=== PATIENT | female | born 1995 ===

== ENCOUNTER 2017-08-01 08:02 | Emergency (ER) | payer MEDICAID ==
[2015-05-02 11:51] VITALS: BMI 29.7
--- NOTE | 2017-08-01 10:22 | OBHP ---
Datetime: 08/01/2017 08:45 IP Adm Impression: , intrauterine ; No Active Labor IP Admit Plan: Observation/Evaluation; Discharge home Admit Comment, IP Provider: 22yo with IUP at 36+wks reports to the [facility] today c/o intermittent pelvic cramps and vaginal spotting this morning. She reports good movements but denies LOF. Den ies sexual intercourse for the past 3 months. care with [facility] and has been uncomplicated . Delivery of previous baby at 37wks Uncomplicated. [place]: Irregular contractions with frequency ranging 5-8 mins FHR - Category 1 Cx: FT-/40/-2, [facility] presentation Assessment: IUP at 36.6wks NST Reactive. Pelvic Pressure. Plan: Re evaluate in 1 hour. Patient Reevaluated in 1 hour Cx: 1-40/-2 Pt reports pain scale 3-4. Labor instructions given Plan: D/C Home. Return with strong contractions Q 5mins F/U with OB clinic if no progression to labor within 1 week. Re evaluate Pelvic Type - PN: Adequate Extremities - PN: Normal Abdomen - PN: Normal Back - PN: Normal Breast - PN: Normal Lungs - PN: Normal Heart - PN: Normal Thyroid - PN: Normal Neurologic - PN: Normal HEENT - PN: Normal General - PN: Normal Presentation-Admit: Vertex FHR - Baseline A Provider: 130s Membranes, Provider: Intact Gestation - Est Wks by US: 36.6 EGA AdmitDate IP: 36.6 Vital Signs Provider: Reviewed IP Chief Complaint: Vaginal bleeding; Maternal discomfort NICHD Variability Prov Fetus A: Moderate 6-25bpm NICHD Accel Fetus A IP Provider: 15X15 FHR Category Provider Fetus A: Category I NICHD Decel Fetus A IP Provider: None Dilatation, Provider: FT Effacement, Provider: 40 Station, Provider: -2 Genitourinary Exam: Normal DTRs - PN: Normal
[2017-08-01 14:45] VITALS: O2SAT 99
[2017-08-06 17:20] VITALS: BP 126/53; PULSE 66; RESP 20; TEMP 98.7
== END 2017-08-01 10:15 | disposition home or self-care (01) ==
LOC: H.EROB2 08:02
DX: O26.93 Pregnancy related conditions, unspecified, third trimester (principal); R10.2 Pelvic and perineal pain; O26.853 Spotting complicating pregnancy, third trimester; O47.03 False labor before 37 completed weeks of gestation, third trimester; Z3A.36 36 weeks gestation of pregnancy

== ENCOUNTER 2017-08-03 06:58 | Inpatient (IN) | payer MEDICAID ==
[2017-08-03 07:43] VITALS: BMI 28.5
[2017-08-03] MEDS ORDERED: Lactated Ringer's 1,000 ML IV SCH (07:45)
[2017-08-03] MEDS ORDERED: Penicillin G Potassium 5 MU in Sodium Chloride 0.9% 50 ML IV ONE (07:51)
[2017-08-03 08:18] LABS: BASO % 0.2 % (0.0-2.0); EOS % 0.2 % (0.0-4.0); HEMOGLOBIN 12.6 g/dL (12.0-16.0); LYMPH # 2.6 K/uL (1.0-4.3); LYMPH % 19.2 % (20.0-40.0); MEAN CORPUSCULAR HEMOGLOBIN 28.1 pg (27.0-31.0); MEAN CORPUSCULAR HGB CONC 32.7 g/dL (33.0-37.0); MEAN PLATELET VOLUME 9.3 fl (7.2-11.7); MONO # 0.9 K/uL (0.0-0.8); MONO % 6.9 % (0.0-10.0); NEUT # 10.1 K/uL (1.8-7.0); NEUT % 73.5 % (50.0-75.0); RBC 4.48 Mil/uL (3.80-5.20); RED CELL DISTRIBUTION WIDTH 14.3 % (11.5-14.5); WHITE BLOOD COUNT 13.8 K/uL (4.8-10.8)
[2017-08-03] MEDS ORDERED: Benzocaine/Menthol SPRAY TOP PRN ×2 (08:22→09:55)
--- NOTE | 2017-08-03 08:33 | OBDS ---
DELIVERY PERSONNEL Delivery Doctor: DR. Hartley Cloth Winder Machine Operator: Karissa James RN Resident: Dr. Seay MATERNAL INFORMATION Delivery Anesthesia: None Medications in Delivery: Pitocin 30units in LR 500 ml Estimated Blood Loss (ml): 150 Placenta Cultured: No Maternal Complications: None Provider Comments: Pt was fully dilated and was pushing. A viable female infant with BW of 2995gm wa s delivered in the BLAINE position with an scores of 9 and 9 over an intact perineum. EBL- 150mls Pt tolerated the procedure well. LABOR SUMMARY EDC: 08/26/2017 00:00 No. Babies in Womb: 1 Attempted: No Labor Anesthesia: None LABOR INFORMATION Reason for Induction: Not Applicable Onset of Labor: 08/03/2017 03:00 Complete Dilatation: 08/03/2017 08:09 Oxytocin: N/A Group B Beta Strep: Done, Result Unknown Antibiotics # of Doses: none Antibiotics Time of Last Dose: none Steroids Given: None Reason Steroids Not Administered: Not Applicable MEMBRANES Membranes Rupture Method: Spontaneous Rupture of Membranes: 08/03/2017 08:09 Length of Rupture (hrs): 0.05 Amniotic Fluid Color: Clear Amniotic Fluid Amount: Moderate Amniotic Fluid Odor: Normal STAGES OF LABOR Stage 1 hrs: 5 Stage 1 min: 9 Stage 2 hrs: 0 Stage 2 min: 3 Stage 3 hrs: 0 Stage 3 min: 2 Total Time in Labor hrs: 5 Total Time in Labor min: 14 VAGINAL DELIVERY Episiotomy: None Laceration Extension: N/A Laceration Type: None Initial Vag Sponge Count: 0 Final Vag Sponge Count: 0 Initial Vag Sharps Count: 0 Final Vag Sharps Count: 0 Sponge Count Correct: Yes Sharps Count Correct: N/A Count Comment: 5 laps with rings. count correct and acknowledged BABY A INFORMATION Infant Delivery Date/Time: 08/03/2017 08:12 Method of Delivery: Vaginal Born in Route : No : N/A Forceps: N/A Vacuum Extraction: N/A Shoulder Dystocia : No SHOULDER DYSTOCIA BABY A Infant Delivery Date/Time: 08/03/2017 08:12 PRESENTATION/POSITION BABY A Presentation: Cephalic Cephalic Presentation: Vertex Breech Presentation: N/A PLACENTA INFORMATION BABY A Placenta Delivery Time : 08/03/2017 08:14 Placenta Method of Delivery: Spontaneous Placenta Status: Delivered SCORES BABY A Heart Rate 1 min: >100 bpm Resp Effort 1 min: Good Cry Reflex Irritability 1 min: Cough or Sneeze or Pulls Away Muscle Tone 1 min: Active Motion Color 1 min: Body [place], Extremities Blue Resuscitation Effort 1 min: Tactile Stimulation SCORE 1 MIN: 9 Heart Rate 5 min: >100 bpm Resp Effort 5 min: Good Cry Reflex Irritability 5 min: Cough or Sneeze or Pulls Away Muscle Tone 5 min: Active Motion Color 5 min: Body [place], Extremities Blue Resuscitation Effort 5 min: Tactile Stimulation SCORE 5 MIN: 9 INFORMATION BABY A Gestational Age at Delivery: 37.5 Gestational Status: Term Infant Outcome : Liveborn Infant Condition : Stable Sex: Female IDENTIFICATION/MEDS BABY A ID Band Number: [id number] ID Band Location: Left Leg; Left Arm Vitamin K Given : Not Given Erythromycin Given: Not Given WEIGHT/LENGTH BABY A Birthweight (gms): 2995 Infant Weight (lb): 6 Weight (oz): 10 CORD INFORMATION BABY A No. Cord Vessels: 3 Nuchal Cord : 3 Cord Blood Taken: Yes Infant Suction: None ASSESSMENT BABY A Infant Complications: None Physical Findings at Delivery: Within Normal Limits Respirations: Appears Normal Extracting Machine Operator/ALS Called : No Infant Care By: marcela Freitas Transferred To: Remains with Mother
--- NOTE | 2017-08-03 08:35 | OBADHP ---
Datetime: 08/03/2017 07:30 Admit Comment, IP Provider: 22 y/o at 36.5 weeks GA, CARLOS 08/26/17 by LMP 11/19/16, presented to [facility] c/o painful uterine contractions. Pt reports CTX began 2 days ago but aggravated in intensity t is morning at 3 am, 9/10 intensity and every 5 mins. Mucous plug expulsion yesterday at 11am. No LOF or vaginal bleeding. FM present. All systems reviewed and negative except as above. -NKDA -Medications: PNV -PN Care: Dr Gardner at [facility] -PN Labs: RPR neg, HIV neg, GBS unknown. -OBHx: , 1x at 37 weeks GA, 1x IAb. -PMHx: denied -PSHx: denied -FHx: NC SHx: No tobacco, no alcohol and no rec drugs. A/P: 22 y/o with IUP at 36.5 weeks GA, in active labor, GBS unknown. -Admit to L and D -Initiate labor protocol. -Penicillin prophylaxis. Case discussed with Dr [place], OB hospitalist commissioned [employer] officer. GTolentino PGY-1 Attending Note: Pt was seen with the resident and agrees with the above. Breast - PN: Normal Heart - PN: Normal Thyroid - PN: Normal HEENT - PN: Normal General - PN: Normal FHR - Baseline A Provider: 140 Comments, ACOG Physical Exam: Pelvis: cephalic presentation Pool Provider: Negative IP Hx Assessment: The History has been Reviewed and is Current Vital Signs Provider: Reviewed IP Chief Complaint: Uterine contractions NICHD Variability Prov Fetus A: Moderate 6-25bpm NICHD Accel Fetus A IP Provider: 15X15 FHR Category Provider Fetus A: Category I Dilatation, Provider: 5-6 Effacement, Provider: 70 Station, Provider: -1 EGA AdmitDate IP: 36.5 IP Adm Impression: , intrauterine IP Admit Plan: Admit to unit; Initiate labor protocol Datetime: 08/01/2017 08:45 Pelvic Type - PN: Adequate Extremities - PN: Normal Abdomen - PN: Normal Back - PN: Normal Lungs - PN: Normal Neurologic - PN: Normal Presentation-Admit: Vertex Membranes, Provider: Intact Gestation - Est Wks by US: 36.6 NICHD Decel Fetus A IP Provider: None Genitourinary Exam: Normal DTRs - PN: Normal
[2017-08-04 07:33] LABS: HEMOGLOBIN 11.3 g/dL (12.0-16.0); MEAN CELL VOLUME 87.1 fl (81.0-99.0); MEAN CORPUSCULAR HEMOGLOBIN 28.3 pg (27.0-31.0); MEAN CORPUSCULAR HGB CONC 32.5 g/dL (33.0-37.0); RBC 3.99 Mil/uL (3.80-5.20); RED CELL DISTRIBUTION WIDTH 14.1 % (11.5-14.5); WHITE BLOOD COUNT 13.4 K/uL (4.8-10.8)
--- NOTE | 2017-08-04 07:47 | OBPPN ---
Datetime: 08/04/2017 06:14 PP Pain Prov: Within normal limits PP Nausea Prov: Denies PP Flatus Prov: Yes PP BM Prov: No PP Impression Prov: Normal progression PP Plan Prov: Continue present management PP Progress Note Prov: PPD 1 S: 22 y/o female s/p on 08/03/17 evaluated on PPD1. Pt was seen and examined at beds endy this AM. No overnight events. Pt reports mild abdominal pain, but well controlled with pain meds. Ambulating. Breast feeding (with formula supplementation) without difficulty. Lochia is similar to m enses volume. +Flatus/-BM. Denies fever/chills, diarrhea, nausea/vomiting, chest pain, dyspnea, and d izziness. O: VS: stable GEN: NAD Cardio: S1S2, no murmurs Lungs: clear breath sounds b/l, no wheezing Abdomen: BS+, appropriate tenderness to palpation. Uterus is firm and at the level of the umbilic us. EXT: No edema, calves nontender NEURO/PSYCH: AAOx3, no grossly focal deficits, preserved affect and mood. H/H (post ): pending Assessment/Plan: 22 y/o female s/p on 08/03/17, doing well on PPD1. Pt remains afebr ile, tolerating pain with medication. Tolerating diet. Anticipating d/c on 08/05. Continue with curre nt management. F/U post cbc. Encourage and ambulating Ibuprofen 600mg po q6 for pain. Colace 100 mg PO BID Carito Augustine, PGY1 OB Hospitalist Addendum: Pt seen and examined by me. Agree w/ above. PPD 1 s/p , doing well, breast and bottle feeding Continue current management. (ES) Vital Signs Provider PP: Reviewed; Within Normal Limits
--- NOTE | 2017-08-05 12:15 | OBDCSUM ---
Datetime: 08/05/2017 08:12 Discharged to, Provider: Home Follow up at, Provider: [facility] Disch Instr Activity: Normal activity; May be up to bathroom; May be up for meals; May Shower Disch Instr Diet: Regular Discharge Instructions, Provider: Routine instructions given Discharge Diagnosis, Provider: Delivery Discharge Time: 08/05/2017 12:00 Follow up in weeks, Provider: 4-6 weeks Disch Referrals: None Contraception discussed, Prov: Yes Disch Activity Restrictions: No lifting; No sexual activity; Nothing in vagina - [place], tampon s, douche Discharge Comment, Provider: 22 yo , s/p NVD of viable female infant on 08/03/17 at 0812, jem h weight 2995g, APGARS: 9/9. Post H/H: 11.3/34.7. Doing well on PPD 2. Discharge instructions: --Encourage . --Continue PNV 1 tab PO daily. --Ibuprofen 600 mg 1 tab Q6h PRN if moderate pain. Take ibuprofen with food and glass of water. --Ambulate with caution, nothing per vagina for 6 weeks, no heavy lifting. If excessive bleeding, or fever without relief from tylenol, go to ED. --Follow up with provider at [facility] in 4-6 weeks; you will receive a ph one call about your appointment this week. If you are not notified of an appointment, please call for a appointment. --Follow up at storage and backup administrator or family medicine provider of choice within 1 week to establish care for infant. -[email or web address] Discharge Diagnosis Prov Other: delivery at 36 weeks and 5 days Contraception after Delivery: Undecided
--- NOTE | 2017-08-05 12:15 | OBPPN ---
Datetime: 08/05/2017 07:53 PP Pain Prov: Within normal limits PP Nausea Prov: Denies PP Flatus Prov: Yes PP BM Prov: No PP Breasts Prov: Normal PP Heart Prov: Normal PP Lungs Prov: Normal PP Abdomen/Uterus Prov: Normal PP Lochia Prov: Normal PP Extremities Prov: Normal PP C/S Incision Prov: Not Applicable PP Progress Prov: Normal PP Impression Prov: Normal progression PP Plan Prov: Discharge PP Progress Note Prov: 22 yo F, , s/p NVD on 08/03/17, PPD2. Pt was seen and evaluated at bed side this morning; no acute events overnight. Pain is well controlled, she is ambulating, tolerating diet, voiding, and has passed gas. She is both breast and bottle feeding without difficulty. States thatl ochia is similar to menses in volume. Denies fever/chills, diarrhea, nausea/vomiting, chest pain, dyspnea, and dizziness. Gen: NAD, alert Cardio: S1S2, RRR Lungs: clear breath sounds bilaterally, normal effort Abdomen: BS+, minimal tenderness to palpation, uterus firm at umbilicus Ext: No edema, calves nontender, Ashley's sign legative Neuro/Psych: AAOx3, no grossly focal deficits, preserved affect and mood H/H (post ): 11.3/34.7 Assessment/Plan: 22 yo female s/p NVD on 08/03/17, doing well on PPD2. Stable for discharg e today. -[email or web address] ob attending addendum: pt seen _ exmined by me. agree with above assessment and plan. contnue pnv Vital Signs Provider PP: Reviewed; Within Normal Limits
[2017-08-05] MEDS ORDERED: Lansinoh for Breast Feeding Mothers TP ONE (12:24)
[2017-08-05 18:04] VITALS: BP 126/53; PULSE 66; RESP 20; TEMP 98.7
== END 2017-08-05 13:46 | disposition home or self-care (01) | DRG 372 ==
LOC: H.EROB2 06:58 → H.L&D 07:43 → H.OB/GYN 09:52
PROVIDERS: ADMIT Obstetrics & Gynecology; ATTEND Obstetrics & Gynecology
PROC: 10E0XZZ Delivery of Products of Conception, External Approach (ICD-10-PCS; principal; 2017-08-03)
PROC: 4A1HXCZ Monitoring of Products of Conception, Cardiac Rate, External Approach (ICD-10-PCS; 2017-08-03)
DX: O60.14X0 Preterm labor third trimester with preterm delivery third trimester, not applicable or unspecified (principal); Z3A.36 36 weeks gestation of pregnancy; Z37.0 Single live birth; O69.81X0 Labor and delivery complicated by cord around neck, without compression, not applicable or unspecified